=== PATIENT | male | born 1975 | race African-American/Black ===

== ENCOUNTER 2019-02-13 18:14 | Emergency (ER) | payer BC ==
[2019-02-13 18:23] VITALS: RESP 18; TEMP 98.1
[2019-02-13] MEDS ORDERED: SODIUM CHLORIDE 0.9% 1,000 ML IV STA (18:34)
[2019-02-13] MEDS ORDERED: SODIUM CHLORIDE 0.9% 500 ML 500 ML IV STA (18:34)
[2019-02-13 19:26] LABS: Basophils % (A) 0 %; Eosinophils # (A) 0.2 k/uL (0-0.7); Eosinophils % (A) 1 %; HCT 44.3 % (39.0-53.0); HGB 15.1 gm/dL (13.0-17.5); Lymphocytes # (A) 1.7 k/uL (1.0-4.8); Lymphocytes % (A) 15 %; MCH 32.7 pg (25.0-35.0); MCHC 34.1 g/dL (31.0-37.0); MCV 95.8 fL (80.0-100.0); Mean Platelet Volume 7.3; Monocytes # (A) 0.7 k/uL (0-1.0); Monocytes % (A) 6 %; Neutrophils # (A) 8.6 k/uL (1.3-7.7); Neutrophils % (A) 75 %; Platelet Count 206 k/uL (150-450); RBC 4.63 m/uL (4.30-5.90); RDW 12.1 % (11.5-15.5); WBC 11.5 k/uL (3.8-10.6)
--- NOTE | 2019-02-13 19:29 | ED ---
Nausea/Vomiting/Diarrhea HPI - General Chief complaint: Nausea/Vomiting/Diarrhea Stated complaint: Cough, vomiting Time Seen by Provider: 02/13/19 18:25 Source: patient, RN notes reviewed Mode of arrival: ambulatory Limitations: no limitations - History of Present Illness Initial comments: This a 43-year-old male presents emergency Department with multiple complaints. Patient states the last several months she's had increasing vomiting episodes. Patient states that it randomly calms he has no central morning. Patient states that he is also had extreme night sweats, 30 pound weight loss. Patient does admit that he does not go to primary care physician a regular basis he has admit that he drinks alcohol on a regular basis. Patient states he does have some reflux occasionally and occasionally has right-sided abdominal pain has no current pain. Patient has no dysuria no hematuria. Denies any diarrhea, constipation. Patient also admits that he is a daily smoker also vapes on regular Basis. - Related Data Previous Rx's Medication Instructions Recorded Azithromycin [Zithromax Z-pack] 0 mg PO DIRECTED #1 pack 02/13/19 Omeprazole [PriLOSEC] 20 mg PO AC-BRKFST #14 cap 02/13/19 Ondansetron Odt [Zofran Odt] 4 mg PO Q8HR PRN #10 tab 02/13/19 Allergies Allergy/AdvReac Type Severity Reaction Status Date / Time No Known Allergies Allergy Verified 02/13/19 18:16 Review of Systems ROS Statement: Those systems with pertinent positive or pertinent negative responses have been documented in the HPI. ROS Other: All systems not noted in ROS Statement are negative. Past Medical History Past Medical History: No Reported History History of Any Multi-Drug Resistant Organisms: None Reported Past Surgical History: No Surgical Hx Reported Past Psychological History: No Psychological Hx Reported Smoking Status: Current every day smoker Past Alcohol Use History: Daily Past Drug Use History: None Reported General Exam Limitations: no limitations General appearance: alert, in no apparent distress Head exam: Present: atraumatic, normocephalic, normal inspection Eye exam: Present: normal appearance, PERRL, EOMI. Absent: scleral icterus, conjunctival injection, periorbital swelling ENT exam: Present: normal exam, normal oropharynx, mucous membranes moist, TM's normal bilaterally Neck exam: Present: normal inspection, full ROM. Absent: tenderness, meningismus, lymphadenopathy Respiratory exam: Present: normal lung sounds bilaterally. Absent: respiratory distress, wheezes, rales, rhonchi, stridor Cardiovascular Exam: Present: regular rate, normal rhythm, normal heart sounds. Absent: systolic murmur, diastolic murmur, rubs, gallop, clicks GI/Abdominal exam: Present: soft, normal bowel sounds. Absent: distended, tenderness, guarding, rebound, rigid Neurological exam: Present: alert, oriented X3, CN II-XII intact Skin exam: Present: warm, dry, intact, normal color. Absent: rash Course Vital Signs 02/13/19 02/13/19 18:17 20:33 Temperature 98.1 F Pulse Rate 99 89 Respiratory 18 18 Rate Blood Pressure 140/93 135/85 O2 Sat by Pulse 98 99 Oximetry Medical Decision Making - Medical Decision Making Labs and essentially unremarkable. CT shows evidence of pneumonia right lung base noted on exam. Patient does have some bony lesion in his iliac wing. Patient will be referred to orthopedics for an MRI. Patient was given Rocephin emergency from discharge on azithromycin .i counseled the patient for smoking cessation for greater than 3 minutes. Patient advised follow-up PCP - Lab Data Result diagrams: 02/13/19 19:13 02/13/19 19:13 Lab Results 02/13/19 02/13/19 02/13/19 Range/Units 19:13 19:13 19:13 WBC 11.5 H (3.8-10.6) k/uL RBC 4.63 (4.30-5.90) m/uL Hgb 15.1 (13.0-17.5) gm/dL Hct 44.3 (39.0-53.0) % MCV 95.8 (80.0-100.0) fL MCH 32.7 (25.0-35.0) pg MCHC 34.1 (31.0-37.0) g/dL RDW 12.1 (11.5-15.5) % Plt Count 206 (150-450) k/uL Neutrophils % 75 % Lymphocytes % 15 % Monocytes % 6 % Eosinophils % 1 % Basophils % 0 % Neutrophils # 8.6 H (1.3-7.7) k/uL Lymphocytes # 1.7 (1.0-4.8) k/uL Monocytes # 0.7 (0-1.0) k/uL Eosinophils # 0.2 (0-0.7) k/uL Basophils # 0.0 (0-0.2) k/uL PT 9.5 (9.0-12.0) sec INR 0.9 (<1.2) APTT 24.7 (22.0-30.0) sec Sodium 140 (137-145) mmol/L Potassium 4.2 (3.5-5.1) mmol/L Chloride 108 H (98-107) mmol/L Carbon Dioxide 23 (22-30) mmol/L Anion Gap 9 mmol/L BUN 11 (9-20) mg/dL Creatinine 1.07 (0.66-1.25) mg/dL Est GFR (CKD-EPI)AfAm >90 (>60 ml/min/1.73 sqM) Est GFR (CKD-EPI)NonAf 85 (>60 ml/min/1.73 sqM) Glucose 88 (74-99) mg/dL Calcium 8.8 (8.4-10.2) mg/dL Total Bilirubin 0.6 (0.2-1.3) mg/dL AST 38 (17-59) U/L ALT 44 (21-72) U/L Alkaline Phosphatase 96 (38-126) U/L Total Protein 7.5 (6.3-8.2) g/dL Albumin 4.2 (3.5-5.0) g/dL Amylase 78 (30-110) U/L Lipase 124 (23-300) U/L Urine Color Urine Appearance (Clear) Urine pH (5.0-8.0) Ur Specific [place] (1.001-1.035) Urine Protein (Negative) Urine Glucose (UA) (Negative) Urine Ketones (Negative) Urine Blood (Negative) Urine Nitrite (Negative) Urine Bilirubin (Negative) Urine Urobilinogen (<2.0) mg/dL Ur Leukocyte Esterase (Negative) 02/13/19 Range/Units 19:20 WBC (3.8-10.6) k/uL RBC (4.30-5.90) m/uL Hgb (13.0-17.5) gm/dL Hct (39.0-53.0) % MCV (80.0-100.0) fL MCH (25.0-35.0) pg MCHC (31.0-37.0) g/dL RDW (11.5-15.5) % Plt Count (150-450) k/uL Neutrophils % % Lymphocytes % % Monocytes % % Eosinophils % % Basophils % % Neutrophils # (1.3-7.7) k/uL Lymphocytes # (1.0-4.8) k/uL Monocytes # (0-1.0) k/uL Eosinophils # (0-0.7) k/uL Basophils # (0-0.2) k/uL PT (9.0-12.0) sec INR (<1.2) APTT (22.0-30.0) sec Sodium (137-145) mmol/L Potassium (3.5-5.1) mmol/L Chloride (98-107) mmol/L Carbon Dioxide (22-30) mmol/L Anion Gap mmol/L BUN (9-20) mg/dL Creatinine (0.66-1.25) mg/dL Est GFR (CKD-EPI)AfAm (>60 ml/min/1.73 sqM) Est GFR (CKD-EPI)NonAf (>60 ml/min/1.73 sqM) Glucose (74-99) mg/dL Calcium (8.4-10.2) mg/dL Total Bilirubin (0.2-1.3) mg/dL AST (17-59) U/L ALT (21-72) U/L Alkaline Phosphatase (38-126) U/L Total Protein (6.3-8.2) g/dL Albumin (3.5-5.0) g/dL Amylase (30-110) U/L Lipase (23-300) U/L Urine Color Light Yellow Urine Appearance Clear (Clear) Urine pH 5.0 (5.0-8.0) Ur Specific [place] 1.005 (1.001-1.035) Urine Protein Negative (Negative) Urine Glucose (UA) Negative (Negative) Urine Ketones Negative (Negative) Urine Blood Negative (Negative) Urine Nitrite Negative (Negative) Urine Bilirubin Negative (Negative) Urine Urobilinogen <2.0 (<2.0) mg/dL Ur Leukocyte Esterase Negative (Negative) Disposition Clinical Impression: Nausea & vomiting, Pneumonia, Gastritis, Lesion of pelvic bone Disposition: HOME SELF-CARE Condition: Stable Instructions (If sedation given, give patient instructions): Acute Nausea and Vomiting (ED), Pneumonia (ED) Additional Instructions: Please return to the Emergency Department if symptoms worsen or any other concerns. Prescriptions: Omeprazole [PriLOSEC] 20 mg PO AC-BRKFST #14 cap Azithromycin [Zithromax Z-pack] 0 mg PO DIRECTED #1 pack Ondansetron Odt [Zofran Odt] 4 mg PO Q8HR PRN #10 tab PRN Reason: Nausea Is patient prescribed a controlled substance at d/c from ED?: No Referrals: Petr Ramey DO [Doctor of Osteopathic Medicine] - 1-2 days None,Stated [Primary Care Provider] - 1-2 days Time of Disposition: 20:56
[2019-02-13 19:31] LABS: Appearance,Urine Clear (Clear); Bilirubin,Urine Negative (Negative); Blood,Urine Negative (Negative); Color,Urine Light Yellow; Glucose,Urine (UA) Negative (Negative); Ketones,Urine Negative (Negative); Leukocyte Esterase,Urine Negative (Negative); Nitrite,Urine Negative (Negative); Protein,Urine Negative (Negative); Specific Gravity,Urine 1.005 (1.001-1.035); Urobilinogen,Urine <2.0 mg/dL (<2.0)
[2019-02-13 19:38] LABS: ALT 44 U/L (21-72); AST 38 U/L (17-59); African American GFR (CKD) >90 (>60 ml/min/1.73 sqM); Albumin 4.2 g/dL (3.5-5.0); Alkaline Phosphatase 96 U/L (38-126); Amylase 78 U/L (30-110); Anion Gap 9 mmol/L; Blood Urea Nitrogen 11 mg/dL (9-20); Calcium 8.8 mg/dL (8.4-10.2); Carbon Dioxide 23 mmol/L (22-30); Chloride 108 mmol/L (98-107); Glucose 88 mg/dL (74-99); Non-African American GFR(CKD) 85 (>60 ml/min/1.73 sqM); Potassium 4.2 mmol/L (3.5-5.1); Sodium 140 mmol/L (137-145); Total Bilirubin 0.6 mg/dL (0.2-1.3); Total Protein 7.5 g/dL (6.3-8.2)
[2019-02-13 19:39] LABS: INR 0.9 (<1.2); Partial Thromboplastin Time 24.7 sec (22.0-30.0); Prothrombin Time 9.5 sec (9.0-12.0)
--- NOTE | 2019-02-13 19:48 | XR ---
EXAMINATION TYPE: XR chest 2V DATE OF EXAM: 02/13/2019 COMPARISON: NONE HISTORY: Cough TECHNIQUE: Frontal and lateral views of the chest are obtained. FINDINGS: There is no focal air space opacity, pleural effusion, or pneumothorax seen. The cardiac silhouette size is within normal limits. The osseous structures are intact. IMPRESSION: No acute cardiopulmonary process.
--- NOTE | 2019-02-13 20:30 | CT ---
EXAMINATION TYPE: CT abdomen pelvis w con DATE OF EXAM: 02/13/2019 COMPARISON: None HISTORY: Abdominal pain and vomiting x2 months CT DLP: 909.5 mGycm Automated exposure control for dose reduction was used. TECHNIQUE: Helical acquisition of images was performed from the lung bases through the pelvis. CONTRAST: Performed without Oral Contrast and with IV Contrast, patient injected with 100 mL of Isovue 300. FINDINGS: Reticular nodular opacities are present at the right lung base. The heart is not enlarged. The liver, spleen, pancreas, and adrenal glands are within normal limits. The gallbladder is contract ed; no calcified gallstones. Symmetric renal enhancement without hydronephrosis. Urinary bladder is within normal limits. No dilated bowel, free air, or free fluid. Morphologically normal appendix. No mesenteric inflammatio n. Normal course and caliber of the aorta. No lymphadenopathy. Lobulated lucent lesion within the anterior left iliac wing is medullary based and demonstrates mild cortical expansion as well as endosteal scalloping; the cortex is grossly intact. The lesion spans 4. 8 cm AP by 1.7 cm CC by 1.3 cm TR dimension. Internal complexity is noted within the lesion with area s of soft tissue as well as fat attenuation. IMPRESSION: 1. No acute intra-abdominal process. 2. Reticular nodular opacities at the right lung base incompletely imaged however may represent an in fectious or inflammatory process. 3. Incidental lucent lesion of the left iliac crest anteriorly is incompletely evaluated on this stud y. MRI with intravenous contrast is recommended nonemergently.
[2019-02-13 20:34] VITALS: BP 135/85; PULSE 89
[2019-02-13] MEDS ORDERED: cefTRIAXone IN SWFI 1,000 MG/10 ML SYRINGE IVP STA (20:53)
== END 2019-02-13 21:21 | disposition home or self-care (01) ==
LOC: EC 18:14
DX: K29.70 Gastritis, unspecified, without bleeding (principal); J18.9 Pneumonia, unspecified organism; M89.8X8 Other specified disorders of bone, other site; F17.200 Nicotine dependence, unspecified, uncomplicated; Z71.6 Tobacco abuse counseling
CPT/HCPCS: 36415; 80053; 82150; 83690; 85025; 85610; 85730; 81003; 71046; 74177; 99284; 99406; 96374; 96361 ×2; J0696; Q9967